=== PATIENT | male | born 1980 | race Two or more races ===

== ENCOUNTER 2021-03-09 18:46 | Inpatient (IN) | payer MEDICAID, SELFPAY ==
[2021-03-09] VITALS (8 sets, daily range): BP systolic 131–181; BP diastolic 111–124; PULSE 110–119; RESP 15–20; TEMP 36.5; O2SAT 97–99
--- NOTE | ~2021-03-09 | US_ITS ---
US renal BI 03/10/2021 13:15 Procedure: Realtime transabdominal ultrasound of the kidneys and bladder. Indication: Proteinuria Comparison: No prior studies for comparison. Findings: Renal echotexture is normal bilaterally without hydronephrosis, contour deforming mass or r enal calculus. The right kidney measures 10.8 cm and left kidney measures 10.1 cm. Bladder is not di stended for evaluation. Impression: 1: Unremarkable renal ultrasound. No stones, masses or hydronephrosis. Reviewed, dictated and finalized at location A. Impression: 1: Unremarkable renal ultrasound. No stones, masses or hydronephrosis.
--- NOTE | ~2021-03-09 | XR_ITS ---
EXAMINATION: XR chest 2V DATE: 03/09/2021 19:26 INDICATION: Cough. TECHNIQUE: Frontal and lateral views of the chest were obtained. COMPARISON: None. FINDINGS: There are airspace opacities in the mid and lower lung zones with a perihilar predominance. No pleural effusion or pneumothorax or cardiomegaly is noted. IMPRESSION: 1. Airspace opacities in the mid and lower lung zones, consistent with pneumonia versus mild pulmonar y edema. 2. Cardiomegaly. Reviewed, dictated and finalized at location A. IMPRESSION: 1. Airspace opacities in the mid and lower lung zones, consistent with pneumoni a versus mild pulmonary edema. 2. Cardiomegaly.
--- NOTE | 2021-03-09 18:55 | ECG_ITS ---
Measurements Intervals [place] Rate: 113 P: 53 NV: 163 QRS: 63 QRSD: 105 T: 145 QT: 326 QTc: 448 Interpretive Statements SINUS TACHYCARDIA POSSIBLE LEFT ATRIAL ENLARGEMENT INCOMPLETE RIGHT BUNDLE BRANCH BLOCK BORDERLINE T WAVE ABNORMALITY- DIFFUSE LEADS ABNORMAL ECG Electronically Signed On 03-09-2021 21:26:25 CDT by Antione Lucero D.O.
[2021-03-09 19:23] LABS: Basophils Percent Auto 0.4 % (0.2-1.2); Eosinophils Absolute Auto 0.1 K/mm3 (0-0.3); Eosinophils Percent Auto 0.7 % (0-4.4); Hematocrit 42.2 % (42.0-52.0); Hemoglobin 13.6 g/dL (14.0-18.0); Immature Granulocyte Absolute 0.03 K/mm3 (0.00-0.031); Immature Granulocyte Percent A 0.3 % (0-0.5); Lymphocytes Absolute Auto 2.21 K/mm3 (0.9-3.2); Lymphocytes Percent Auto 21.5 % (18.3-44.2); Mean Corpuscular HGB Conc 32.2 g/dl (32-36); Mean Corpuscular Hemoglobin 28.3 pg (26-34); Mean Corpuscular Volume 87.7 fl (80-100); Mean Platelet Volume 9.3 fl (7.4-10.4); Monocytes Absolute Auto 0.5 K/mm3 (0.1-0.6); Monocytes Percent Auto 4.9 % (2.6-8.5); Neutrophils Absolute Auto 7.4 K/mm3 (1.3-6.7); Neutrophils Percent Auto 72.2 % (45.5-73.1); Platelet Count Result 377 k/mm3 (150-375); Red Blood Count 4.81 M/mm3 (4.6-6.20); Red Cell Distribution Width 13.5 % (11.5-14.5); White Blood Count 10.3 K/mm3 (4.5-10.0)
[2021-03-09 19:25] LABS: Anion Gap 7 mmol/L (8-16); Blood Urea Nitrogen 13 mg/dL (9-20); Calcium 8.5 mg/dL (8.4-10.2); Carbon Dioxide 24 mmol/L (22-30); Chloride 104 mmol/L (98-107); Estimated CRCL calculation 100 ml/min; Estimated Glomerular Filt Rate > 60; Glucose 112 mg/dL (65-110); INR 1.1; Partial Thromboplastin Time 28.9 SECONDS (22.3-36.8); Potassium 3.8 mmol/L (3.4-5.0); Prothrombin Time 13.6 Seconds (11.1-14.7); Sodium 135 mmol/L (137-145)
[2021-03-09 19:37] LABS: NT Pro B Type Natriuretic Pept 2590 pg/mL (5-100); Troponin I 0.025 ng/mL (0.000-0.034)
[2021-03-09 20:38] LABS: Alanine Aminotransferase 37 U/L (4-50); Albumin Level 3.4 g/dL (3.5-5.1); Alkaline Phosphatase 87 U/L (38-126); Aspartate Amino Transferase 41 U/L (17-59); Bilirubin,Total 0.8 mg/dL (0.2-1.3)
[2021-03-09 21:04] LABS: Add Urine Microscopic? YES; Appearance Urine Clear (Clear); Bilirubin Urine Negative (Negative); Blood Urine Negative (Negative); Color Urine Amber (Yellow); Glucose Urine UA Negative (Negative); Ketones Urine Negative (Negative); Leukocyte Esterase Ur Negative LEU/UL (Negative); Mucus Urine Rare /lpf; Nitrate Urine Negative (Negative); Protein Urine 2+ mg/dL (Negative); RBC Urine 0-2 /hpf (0-2); Specific Grav Ur 1.027 (1.001-1.035); WBC Urine 0-3 /hpf
--- NOTE | 2021-03-09 21:20 | ED.GENADULT ---
HPI - General Adult General Chief complaint: Unspecified Stated complaint: BILATERAL SWELLING TO EXTREMITIES Time Seen by Provider: 03/09/21 20:12 Source: patient Mode of arrival: ambulatory Limitations: no limitations History of Present Illness HPI narrative: 40-year-old male Here because of generalized swelling and weight gain Patient says that he had a URI a couple weeks ago Now over the last few days he has noticed marked and increasing weight gain, swelling of both legs, swelling of his scrotum, and increased abdominal girth He has a little shortness of breath when ambulatory but generally speaking is tolerant of being supine He does not have chest pain Related Data Home Medications Medication Instructions Recorded Confirmed No Home Medications 03/09/21 03/09/21 Allergies Allergy/AdvReac Type Severity Reaction Status Date / Time amoxicillin Allergy Swelling Verified 03/09/21 20:14 Review of Systems Review of Systems: All systems reviewed & are unremarkable except as noted in HPI and below Constitutional: Constitutional: Reports no additional constitutional complaints, Denies chills, Denies fever(s) and Denies headache(s) Eyes: Eyes: Reports no additional eye complaints and Denies change in vision ENT: Denies headache(s) and Denies sore throat Cardiovascular: Cardiovascular: Denies chest pain, Reports edema and Denies dyspnea Respiratory: Respiratory: Denies cough, Reports dyspnea and Reports dyspnea on exertion Gastrointestinal: Gastrointestinal: Denies abdominal pain, Denies diarrhea and Denies vomiting Genitourinary: Genitourinary: Denies dysuria, Reports scrotal swelling and Denies urinary frequency Musculoskeletal: Musculoskeletal: Denies deformity, Denies arthralgias, Denies joint swelling and Denies numbness Integumentary/Breasts: Skin/Breast: Denies rash and Denies wounds Neurologic: Denies headache(s), Denies focal weakness and Denies numbness Psychiatric: Psychiatric: Reports no additional psychiatric complaints Endocrine: Endocrine: Reports no additional endocrine complaints Hematologic/Lymphatic: Hematologic/Lymphatic: Reports no additional hematologic/lymphatic complaints Allergic/Immunologic: Allergic/Immunologic: Reports no additional allergic/immunologic complaints [facility] Social History Social History Gender identity (if verbalized by the patient): Male Exam Const: General: cooperative, healthy appearing and no acute distress Orientation/consciousness: patient oriented x3 (alert) HENMT: Head: normal to inspection, normocephalic and atraumatic Eyes: Conjunctivae: conjunctivae normal EOM: EOMs intact bilaterally Neck: Neck: normal visual inspection, supple and no JVD Resp: Effort & Inspection: normal respiratory effort and not labored Auscultation: clear to auscultation bilaterally, no rales, no rhonchi, no wheezes and other (BS =) Cardio: Rate: regular rate Rhythm: regular rhythm Heart sounds: no murmurs GI: Inspection: distended GI Palp: Yes Soft to palpation and No Tenderness to palpation present (GI) Auscultation: normal bowel sounds : Scrotum: scrotal swelling Skin: General skin exam: normal color and no rashes or lesions noted Neuro: General: patient oriented x3 (alert) and moves all extremities Speech: normal speech Extrem: General: normal to inspection, edema and pedal edema Psych: Affect: normal affect Course Vital Signs Vital signs: Vital Signs Temperature 36.5 C 03/09/21 18:51 Pulse Rate 110 H 03/09/21 18:51 Respiratory Rate 20 03/09/21 18:51 Blood Pressure 158/123 H 03/09/21 18:51 Pulse Oximetry 98 03/09/21 18:51 Temperature 36.5 C 03/09/21 18:51 Pulse Rate 116 H 03/09/21 20:13 Respiratory Rate 20 03/09/21 20:13 Blood Pressure 131/115 H 03/09/21 20:13 Pulse Oximetry 97 03/09/21 20:13 Medical Decision Making Vital Signs Vital Signs: Vital Signs Temperature 36.5 C 03/09/21 18:51
[2021-03-09 22:02] LABS: Troponin I 0.026 ng/mL (0.000-0.034)
[2021-03-09] MEDS: BUMETANIDE INJ 1 MG/4 ML VIAL 2 MG IV PUSH (23:06)
[2021-03-09] MEDS: POTASSIUM CHLORIDE 20 MEQ PACKET (FOR LIQUID) 40 MEQ PO (23:06)
--- NOTE | 2021-03-09 23:15 | PC.NURSE ---
ERP notifed of patient's VS.
[2021-03-09] MEDS: ENALAPRILAT 1.25 MG/ML VIAL 2.5 MG IV PUSH (23:41)
[2021-03-10] VITALS (13 sets, daily range): BP systolic 139–177; BP diastolic 102–128; PULSE 100–117; RESP 15–22; TEMP 36.4–37; O2SAT 97–100; BMI 37.8
--- NOTE | 2021-03-10 00:01 | PM.IMHP ---
H&P: HPI History of Present Illness Date/Time: 03/10/21 00:01 Chief Complaint: Shortness of breath Narrative: This is a 40-year-old male who is a very poor historian was not cooperating with history taking as well stated that his had shortness of breath and swelling and thus why he came to the hospital. Girlfriend who is sitting at bedside has given most of the history there were constantly bickering and going back and forth while I was trying to examine the patient and do history taking. According to girlfriend his been having worsening shortness of breath daughter started roughly 3 months ago and now his has worsening swelling of bilateral lower extremity abdomen scrotum has witnessed PND and orthopnea states that he can do anything because gets very short of breath during this time patient has been smoking a pack a day of cigarettes which he stopped 2 weeks ago also during this interval of time patient has been to see the doctor at various facilities from what I gather from on what girlfriend said at some point he was on steroids p.o. and antibiotics but nothing really worked and he has gotten worse. He denied to have had any chest pain or fevers or rigors or chills. Preliminary workup was significant for elevated BNP, urinalysis significant with proteinuria, he had a systolic in the 180s with diastolic in the 110, ECG chest x-ray was significant for cardiomegaly and opacities and ECG with diffuse ST and T-wave changes. Review of Systems Review of Systems: Shortness of breath and swelling increased abdominal girth scrotal swelling ROS unobtainable: Yes other (Patient a very avoidant and poor historian) Cardiovascular: Cardiovascular: Denies chest pain PMFSH Social History Social History Gender identity (if verbalized by the patient): Male Meds Home Medications and Allergies Home Medications Medication Instructions Recorded Confirmed Type No Home Medications 03/09/21 03/09/21 History Allergies Allergy/AdvReac Type Severity Reaction Status Date / Time amoxicillin Allergy Swelling Verified 03/09/21 20:14 Vital Signs Vital Signs - 24 hr 03/09/21 18:51 03/09/21 20:13 03/09/21 20:17 Temperature 97.7 F Pulse Rate 110 H 116 H 119 H Respiratory Rate 20 20 Blood Pressure 158/123 H 131/115 H Pulse Oximetry 98 97 98 03/09/21 20:30 03/09/21 23:03 03/09/21 23:15 Temperature Pulse Rate 116 H Respiratory Rate Blood Pressure 181/124 H 180/117 H Pulse Oximetry 98 99 03/09/21 23:46 Temperature Pulse Rate 118 H Respiratory Rate 15 Blood Pressure 153/111 H Pulse Oximetry 98 Exam Narrative: Laying in audrey Const: General: comfortable, no acute distress, well developed, alert, awake, Physically active and other (Well-appearing) Nutritional Appearance: average body habitus Orientation/consciousness: patient oriented x3 HENMT: Head: normal to inspection, normocephalic and atraumatic Ears: hearing grossly normal bilaterally General nose exam: Normal external nose present Face and sinus: normal facial exam Mouth: Yes Normal oral and palatal mucosa present Eyes: General: appearance normal, both eyes and all related structures Alignment and Position: alignment normal Sclera: sclerae normal Pupils: Equal, round and reactive pupils present EOM: EOMs intact bilaterally Neck: Neck: full ROM, no lymphadenopathy, supple and no JVD Thyroid: thyroid normal Lymphatic: no lymphadenopathy noted Resp: Effort & Inspection: normal respiratory effort and able to speak in complete sentences Auscultation: clear to auscultation bilaterally Cardio: Jugular venous distension: no JVD Rate: tachycardic Rhythm: regular rhythm Heart sounds: S1 normal heart sound present and S2 normal heart sound present GI: Inspection: distended GI Palp: Yes Soft to palpation, Yes Firmness to palpation present (GI), No Tenderness to palpation present (GI) and Yes No hepatosplenomegaly present : General: Yes deferr
--- NOTE | 2021-03-10 00:24 | ADMGEN ---
This patient, Shahzad Danielle, was admitted to [facility] Surg Room 330-01. Patient/family oriented to hospital policies and general routines including ID bracelet, bed and alarms, visiting hours, pain management, procedures, bathroom and other care routines, personal items, smoking policy, room service/diet, and visiting hours. Information on how to activate the Rapid Response Team has been discussed. Patient/Family are encouraged to report perceived risks to care and to ask questions if they do not understand what they are told or what they should do.
[2021-03-10] MEDS: hydrALAZINE HCL 20 MG/ML VIAL 10 MG IV PUSH (01:15)
[2021-03-10 02:18] LABS: Troponin I 0.029 ng/mL (0.000-0.034)
[2021-03-10] MEDS: HEPARIN SODIUM 5,000 UNITS/ML VIAL 5000 UNITS SUB-Q ×3 (05:52→20:50)
[2021-03-10 09:02] LABS: Hematocrit 43.8 % (42.0-52.0); Mean Corpuscular Hemoglobin 28.4 pg (26-34); Mean Corpuscular Volume 88.8 fl (80-100); Mean Platelet Volume 9.1 fl (7.4-10.4); Platelet Count Result 356 k/mm3 (150-375); Red Blood Count 4.93 M/mm3 (4.6-6.20); Red Cell Distribution Width 13.5 % (11.5-14.5); White Blood Count 10.3 K/mm3 (4.5-10.0)
[2021-03-10 09:17] LABS: Alanine Aminotransferase 35 U/L (4-50); Albumin Level 3.6 g/dL (3.5-5.1); Alkaline Phosphatase 91 U/L (38-126); Anion Gap 8 mmol/L (8-16); Aspartate Amino Transferase 33 U/L (17-59); Bilirubin,Total 1.8 mg/dL (0.2-1.3); Blood Urea Nitrogen 12 mg/dL (9-20); Calcium 8.7 mg/dL (8.4-10.2); Carbon Dioxide 26 mmol/L (22-30); Chloride 101 mmol/L (98-107); Estimated CRCL calculation 107 ml/min; Estimated Glomerular Filt Rate > 60; Glucose 110 mg/dL (65-110); Potassium 3.8 mmol/L (3.4-5.0); Sodium 135 mmol/L (137-145)
[2021-03-10] MEDS: FUROSEMIDE INJ 40 MG/4 ML VIAL IV PUSH ×2 (09:31→20:50)
[2021-03-10] MEDS: POTASSIUM CHLORIDE 20 MEQ TABLET.ER PO ×2 (09:31→17:58)
[2021-03-10] MEDS: lisinopriL 10 MG TABLET PO (09:31)
--- NOTE | 2021-03-10 14:49 | PM.IMPN ---
Progress Note: A&P Assessment and Plan (1) CHF (congestive heart failure): Code(s): I50.9 - Heart failure, unspecified Status: Acute Assessment and Plan: Presented with increased edema of lower extremities and scrotum. BNP 2600 Echo has been ordered. Awaiting completion tomorrow Appreciate cardiology consultation Continue with Lasix 40 mg IV b.i.d. Monitor renal function with diuresis. Monitor intake and output. Weigh daily Heart healthy diet and 1500 cc fluid restriction. (2) Anasarca: Code(s): R60.1 - Generalized edema Status: Acute Assessment and Plan: Likely related to CHF. Of note, patient had 2+ proteinuria. Albumin level normalized. Renal ultrasound unremarkable. Discussed case with student finance specialist, Dr. Gordon. No need for nephrology consultation at this time and I will cancel. (3) Abnormal CXR: Code(s): R93.89 - Abnormal findings on diagnostic imaging of other specified body structures Status: Acute Assessment and Plan: CXR reviewed with airspace opacities in the mid and lower lung zones. Favor pulmonary edema over pneumonia given evidence of volume overload. No signs or symptoms to suggest infectious etiology Will discontinue doxycycline at this time. Continue with diuresis (4) Person under investigation for COVID-19: Code(s): Z20.822 - Contact with and (suspected) exposure to COVID-19 Status: Acute Assessment and Plan: Has been tested for COVID-19 in the ED. Has not been vaccinated. Denies contact with known COVID-19 positive individuals. Denies travel. COVID test is pending. Await results. Continue isolation precautions at this time. He is maintaining adequate oxygenation on room air. No need for COVID specific treatment at this time including antivirals or steroids. Supportive care (5) Hypertension: Code(s): I10 - Essential (primary) hypertension Status: Acute Assessment and Plan: Blood pressure reviewed and has been elevated above target. Likely related to volume overload. Last BP 151/102 Anticipate improvement with continued diuresis Not on antihypertensives at home P.r.n. hydralazine for SBP >180 (6) Tobacco dependence: Code(s): F17.200 - Nicotine dependence, unspecified, uncomplicated Status: Acute Assessment and Plan: Reports quit smoking 2 weeks ago. Previously smoking 1 pack per day. Continue to encourage smoking cessation Subjective Date/time seen: 03/10/21 14:49 Interval history: Date of service: 03/10/21 Shahzad Danielle is a 40-year-old male with history of tobacco abuse who is seen in follow-up for suspected CHF exacerbation. He is feeling significantly better today after being diuresed. He is able to take deep breaths and is no longer complaining of shortness of breath. No longer endorsing orthopnea or PND. States he was able to sleep better than he has in a long time and was able to lay flat. No cough or sputum production. He is urinating frequently with his Lasix. Scrotal edema has improved significantly and lower extremity edema is improving. No nausea, vomiting, fever, or chills. No anosmia or dysgeusia. Tolerating his diet. He is able to get up and ambulate independently. Denies dizziness or lightheadedness. No chest pain or palpitations. Last bowel movement was 1 day ago. No urinary symptoms. He would like to take a shower. Review of Systems Review of Systems: All systems reviewed & are unremarkable except as noted in HPI and below Exam Narrative: Mr. Danielle is a well-nourished, well-appearing 40-year-old male who is lying supine in bed. He appears comfortable and is in NARD. Neuro: awake, alert and oriented x4, speech clear, no focal neuro deficits noted HEENMT: normocephalic, atraumatic, EOMI, sclerae anicteric, moist oral mucosa Respiratory: Diminished breath sounds bilaterally with isolation stethoscop
[2021-03-11] VITALS: BP 163/105; PULSE 110; RESP 20; TEMP 36.8; O2SAT 98
[2021-03-11 04:00] VITALS: BP 157/102; PULSE 107; RESP 20; TEMP 36.3; O2SAT 100
[2021-03-11] MEDS: HEPARIN SODIUM 5,000 UNITS/ML VIAL 5000 UNITS SUB-Q ×3 (06:35→21:11)
[2021-03-11 08:00] VITALS: BP 159/112; PULSE 110; RESP 18; TEMP 36.7; O2SAT 98
[2021-03-11] MEDS: POTASSIUM CHLORIDE 20 MEQ TABLET.ER PO ×2 (08:03→16:05)
[2021-03-11] MEDS: FUROSEMIDE INJ 40 MG/4 ML VIAL IV PUSH ×2 (08:03→21:11)
[2021-03-11] MEDS: lisinopriL 10 MG TABLET PO (08:03)
[2021-03-11] MEDS: hydrALAZINE HCL 20 MG/ML VIAL 10 MG IV PUSH ×2 (09:12→17:19)
[2021-03-11 09:32] LABS: Hematocrit 42.9 % (42.0-52.0); Hemoglobin 13.6 g/dL (14.0-18.0); Mean Corpuscular HGB Conc 31.7 g/dl (32-36); Mean Corpuscular Hemoglobin 28.4 pg (26-34); Mean Corpuscular Volume 89.6 fl (80-100); Mean Platelet Volume 9.3 fl (7.4-10.4); Platelet Count Result 373 k/mm3 (150-375); Red Blood Count 4.79 M/mm3 (4.6-6.20); Red Cell Distribution Width 13.6 % (11.5-14.5); White Blood Count 10.1 K/mm3 (4.5-10.0)
[2021-03-11 10:45] LABS: Anion Gap 10 mmol/L (8-16); Blood Urea Nitrogen 12 mg/dL (9-20); Carbon Dioxide 25 mmol/L (22-30); Chloride 99 mmol/L (98-107); Estimated CRCL calculation 107 ml/min; Estimated Glomerular Filt Rate > 60; Glucose 124 mg/dL (65-110); Potassium 4.2 mmol/L (3.4-5.0); Sodium 134 mmol/L (137-145)
[2021-03-11 12:30] VITALS: BP 149/99; PULSE 109; RESP 18; TEMP 36.5; O2SAT 98
--- NOTE | 2021-03-11 13:24 | PM.CNCAR ---
Assessment and Plan Assessment and plan (1) CHF (congestive heart failure): Code(s): I50.9 - Heart failure, unspecified <LARA Ray - Last Filed: 03/11/21 14:25> Status: Acute <LARA Ray - Last Filed: 03/11/21 14:25> Assessment and Plan: This is a new diagnosis. He began experiencing symptoms of shortness of breath, orthopnea, lower extremity edema within the past several weeks. He denies any cardiac history. Chest x-ray showed cardiomegaly and mild pulmonary edema. 2D echocardiogram has been ordered to evaluate systolic function, wall motion abnormalities, chamber dimensions, valve pathology. If systolic function is reduced well discussed pursuing ischemic workup. -continue furosemide 40 mg IV 12 hours. May possibly shift to oral furosemide tomorrow -continue lisinopril 10 mg daily -start carvedilol 3.125 mg BID -daily BMP -fluid restriction 1500 cc's daily -daily weights -accurate intake and output -will order compression stockings -CHF counseling <LARA Ray - Last Filed: 03/11/21 14:25> (2) Hypertension: Code(s): I10 - Essential (primary) hypertension <LARA Ray - Last Filed: 03/11/21 14:25> Status: Acute <LARA Ray - Last Filed: 03/11/21 14:25> Assessment and Plan: Remains above goal. Continue lisinopril. Adding carvedilol 3.125 mg BID <LARA Ray - Last Filed: 03/11/21 14:25> (3) Tobacco dependence: Code(s): F17.200 - Nicotine dependence, unspecified, uncomplicated <LARA Ray - Last Filed: 03/11/21 14:25> Status: Acute <LARA Ray - Last Filed: 03/11/21 14:25> Assessment and Plan: He quit smoking 2 weeks ago. I congratulated him on this. Encouraged continued abstinence from tobacco products. <LARA Ray - Last Filed: 03/11/21 14:25> History of Present Illness History of Present Illness Consult date/time: 03/11/21 13:24 <LARA Ray - Last Filed: 03/11/21 14:25> Requesting physician: Wendy Bridges MD <LARA Ray - Last Filed: 03/11/21 14:25> Consult reason: congestive heart failure <LARA Ray - Last Filed: 03/11/21 14:25> Reason For Visit: Anasarca, CHF <LARA Ray - Last Filed: 03/11/21 14:25> Narrative: This is a 40-year-old male with a past medical history of hypertension who I am seeing at the request of Dr. Bridges for our opinion and advice for management of congestive heart failure. The patient states that he presented to the hospital for what he describes as massive swelling in his bilateral lower extremities. He states that this came on suddenly about 2 days prior to his presentation to the hospital. He also tells me that about 3 weeks ago he presented to Urgent Care with symptoms of upper respiratory infection including chest congestion, shortness of breath, productive cough. He says that he was given antibiotics and steroids which did provide some relief of his symptoms. However, he was still having some shortness of breath and orthopnea which he attributed to the fact that he recently quit smoking. He denies any chest pain, paroxysmal nocturnal dyspnea, palpitations. He denies any cardiac history but does say that he was diagnosed with hypertension by his primary care doctor and was given medication that he did not take. Currently, he reports feeling significantly better than when he 1st presented to the hospital. He is denying shortness of breath. <LARA Ray - Last Filed: 03/11/21 14:25> Review of Systems Review of Systems: All systems reviewed & are unremarkable except as noted in HPI and below <LARA Ray - Last Filed: 03/11/21 14:25> Constitutional: Constitutional: Reports difficulty sleeping, Reports fatigue and Reports lethargy <LARA Ray - Last Filed: 03/11/21 14:25> Eyes:
[2021-03-11 15:12] LABS: Anion Gap 7 mmol/L (8-16); Blood Urea Nitrogen 13 mg/dL (9-20); Calcium 9.6 mg/dL (8.4-10.2); Carbon Dioxide 28 mmol/L (22-30); Chloride 105 mmol/L (98-107); Estimated CRCL calculation 107 ml/min; Estimated Glomerular Filt Rate > 60; Glucose 93 mg/dL (65-110); Potassium 4.8 mmol/L (3.4-5.0); Sodium 140 mmol/L (137-145)
--- NOTE | 2021-03-11 15:26 | PM.IMPN ---
Progress Note: A&P Assessment and Plan (1) CHF (congestive heart failure): Code(s): I50.9 - Heart failure, unspecified Status: Acute Assessment and Plan: Presented with increased edema of lower extremities and scrotum. BNP 2600 Echo has been ordered and awaiting completion Appreciate cardiology consultation Continue with Lasix 40 mg IV b.i.d. Monitor renal function with diuresis. Continue lisinopril 10 mg daily and started on carvedilol 3.125 mg BID Monitor intake and output. Weigh daily Heart healthy diet and 1500 cc fluid restriction. (2) Anasarca: Code(s): R60.1 - Generalized edema Status: Acute Assessment and Plan: Likely related to CHF. Of note, patient had 2+ proteinuria. Albumin level normalized. Renal ultrasound unremarkable. Discussed case with budget record clerk, Dr. Gordon. No need for nephrology consultation at this time and has been cancelled Continue with diuresis as above. (3) Abnormal CXR: Code(s): R93.89 - Abnormal findings on diagnostic imaging of other specified body structures Status: Acute Assessment and Plan: CXR reviewed with airspace opacities in the mid and lower lung zones. Favor pulmonary edema over pneumonia given evidence of volume overload. No signs or symptoms to suggest infectious etiology Continue with diuresis Discontinued doxycycline on 03/10/21. (4) Person under investigation for COVID-19: Code(s): Z20.822 - Contact with and (suspected) exposure to COVID-19 Status: Acute Assessment and Plan: Has been tested for COVID-19 in the ED. Has not been vaccinated. Denies contact with known COVID-19 positive individuals. Denies travel. COVID test performed on 03/09/21 is still pending. Await results. Continue isolation precautions at this time. He is maintaining adequate oxygenation on room air. No need for COVID specific treatment at this time including antivirals or steroids. Supportive care (5) Hypertension: Code(s): I10 - Essential (primary) hypertension Status: Acute Assessment and Plan: Blood pressure reviewed and has been elevated above target. Likely related to volume overload. Last BP 144/99 Anticipate improvement with continued diuresis Continue lisinopril and carvedilol P.r.n. hydralazine for SBP >180 (6) Tobacco dependence: Code(s): F17.200 - Nicotine dependence, unspecified, uncomplicated Status: Acute Assessment and Plan: Reports quit smoking 2 weeks ago. Previously smoking 1 pack per day. Congratulated on this accomplishment and encouraged to continue with smoking cessation Subjective Date/time seen: 03/11/21 15:26 Interval history: Date of service: 03/10/21 Shahzad Danielle is a 40-year-old male with history of tobacco abuse who is seen in follow-up for suspected CHF exacerbation. He is feeling much better today. His shortness of breath has improved significantly. He is able to lay flat and take deep breaths. He is tolerating activity and denies ARREOLA. Lower extremity edema has improved significantly and scrotal swelling has resolved. He is eating and drinking well. Urinating frequently with Lasix. Having regular bowel movements. No chest pain or palpitations. No dizziness or lightheadedness. He is hopeful for discharge soon. Review of Systems Review of Systems: All systems reviewed & are unremarkable except as noted in HPI and below Exam Narrative: Mr. Danielle is a well-nourished, well-appearing 40-year-old male who is lying supine in bed. He appears comfortable and is in NARD. Neuro: awake, alert and oriented x4, speech clear, no focal neuro deficits noted HEENMT: normocephalic, atraumatic, EOMI, sclerae anicteric, moist oral mucosa Respiratory: Diminished breath sounds bilaterally with isolation stethoscope. No crackles, rhonchi, or wheezes., Nonlabored breathing, able to speak in complete sentences C
--- NOTE | 2021-03-11 16:32 | PM.PNCARD ---
Progress Note: A&P Additional Plan 40-year-old black male with decompensated congestive heart failure almost certainly because of hypertensive heart disease and untreated hypertension. . Patient is doing much better with initiation of medical therapy. Echocardiogram is pending. The patient by physical exam appears to have evidence of left ventricular systolic dysfunction. The extent of this be reviewed on the echocardiogram. Hopefully he can be discharged tomorrow for further titration of his medications as an outpatient. Balaji Darnell MD [facility] Subjective Date/time seen: Date of service: 03/11/21 16:32 Interval history: 40-year-old gentleman with: Longstanding hypertension which has been untreated as he has been noncompliant with medication. He now presents with decompensated congestive heart failure which has responded well to diuresis and initiation of an AICHA-inhibitor. Low-dose carvedilol was started as well earlier today after being seen by the nurse practitioner. Patient has no symptoms or complaints to suggest ischemic heart disease. He is hopeful of being discharge soon so that he can return to work. Exam Const: General: comfortable and no acute distress Other: Pleasant overweight black male no apparent distress HENMT: Mouth: Yes dry mucous membranes Eyes: Sclera: sclerae normal Pupils: Equal, round and reactive pupils present Neck: Neck: supple Thyroid: thyroid normal Other: Carotid pulses are normal without bruits Resp: Other: Breath sounds are clear at this time no rales no rhonchi no wheezing Cardio: Rate: tachycardic Rhythm: regular rhythm Other: PMI is difficult to palpate patient has no murmur a summation gallop is audible GI: GI Palp: Yes Soft to palpation Auscultation: normal bowel sounds Skin: General skin exam: normal color Neuro: Cognition (Neuro): normal cognition Extrem: Other: Minimal residual edema Objective Data Vital Signs Vital Signs: Vital Signs - 24 hr 03/10/21 20:00 03/11/21 00:00 03/11/21 04:00 Temperature 36.9 C 36.8 C 36.3 C L Pulse Rate 102 H 110 H 107 H Respiratory Rate 20 20 20 Blood Pressure 139/102 H 163/105 H 157/102 H Pulse Oximetry 100 98 100 03/11/21 08:00 03/11/21 12:30 Temperature 36.7 C 36.5 C Pulse Rate 110 H 109 H Respiratory Rate 18 18 Blood Pressure 159/112 H 149/99 H Pulse Oximetry 98 98 Intake/Output Intake/Output: Intake & Output 03/08/21 03/09/21 03/10/21 03/11/21 23:59 23:59 23:59 23:59 Intake Total 5660 1820 Output Total 600 5090 2550 Balance -600 677 -480 Meds/Results Medications: Active Medications Generic Name Dose Route Start Last Admin Trade Name Freq PRN Reason Stop Dose Admin Carvedilol 3.125 mg 03/11/21 21:00 Carvedilol 3.125 Mg Tablet PO Q12HR MAEGAN Furosemide 40 mg 03/10/21 09:00 03/11/21 08:03 Furosemide Inj 40 Mg/4 Ml Vial IV PUSH 40 mg Q12HR MAEGAN Administration Heparin Sodium (Porcine) 5,000 units 03/10/21 06:00 03/11/21 13:21 Heparin Sodium 5,000 Units/Ml Vial SUB-Q 5,000 units Q8HR MAEGAN Administration Hydralazine HCl 10 mg 03/10/21 15:03 03/11/21 09:12 Hydralazine Hcl 20 Mg/Ml Vial IV PUSH 10 mg Q8H PRN Administration SBP >170 or DBP >100 Lisinopril 10 mg 03/10/21 09:00 03/11/21 08:03 Lisinopril 10 Mg Tablet PO 10 mg DAILY MAEGAN Administration Ondansetron HCl 4 mg 03/09/21 22:53 Ondansetron Inj 4 Mg/2 Ml Vial IV PUSH Q4H PRN Nausea Potassium Chloride 20 meq 03/10/21 08:00 03/11/21 16:05 Potassium Chloride 20 Meq Tablet.Er PO 20 meq BIDWM MAEGAN Administration Radiology Results: ITS Impressions Chest X-Ray 03/09/21 19:30 IMPRESSION: 1. Airspace opacities in the mid and lower lung zones, consistent with pneumonia versus mild pulmonary edema. 2. Cardiomegaly. Renal Ultrasound 03/10/21 13:19 Impression: 1: Unremarkable renal ultrasound. No stones, masses or hydronephrosis. Labs Labs:
[2021-03-11 17:00] VITALS: BP 154/111; PULSE 116; RESP 20; TEMP 36.9; O2SAT 100
[2021-03-11 17:31] LABS: SARS-CoV-2 RNA PCR Negative
[2021-03-11] MEDS: carvediloL 3.125 MG TABLET PO (21:11)
[2021-03-11 22:00] VITALS: BP 120/89; PULSE 112; RESP 18; TEMP 36.5; O2SAT 98
[2021-03-12] MEDS: HEPARIN SODIUM 5,000 UNITS/ML VIAL 5000 UNITS SUB-Q ×2 (05:06→15:26)
[2021-03-12 06:00] VITALS: BP 149/81; PULSE 99; RESP 18; TEMP 37.2; O2SAT 98
--- NOTE | 2021-03-12 06:00 | ECHO_ITS ---
Patient Info Name: Shahzad Danielle Age: 40 years : 1980 Gender: Male Ht: 75 in Wt: 264 lbs BSA: 2.55 m2 HR: 103 bpm BP: 149 / 81 mmHg Heart Rhythm: Tachycardia, Sinus Rhythm Technical Quality: Good Exam Date: 03/12/2021 10:56 AM Exam Location: [facility] Patient Status: Inpatient Admit Date: 03/11/2021 Staff Ordering Physician: Que Storm MD Hazardous Materials Handler: Christina Almendarez RDCS Attending Provider: Wendy Bridges MD Referring Physician: Emeterio CARTER; Exam Type: CA echo dop color flow w con Study Info Indications I50.9 - Heart failure, unspecified Complete two-dimensional, color flow and Doppler transthoracic echocardiogram is performed with contrast to opacify the left ventricle and to improve the deliniation of the left ventricle endocardial borders. Contrast/Agitated Saline Contrast/Ag. Saline: Definity Amount: 1.00 ml Administered By: Nanci Esteves RN Existing IV Access: Yes Summary 1. Left ventricular chamber dimension is moderate to severely enlarged. 2. Left ventricular systolic function is severely reduced, estimated at 25-30%. 3. There is mild to moderately increased left ventricular wall thickness. 4. The left ventricular diastolic function is abnormal. 5. Although filling defect noted at the LV apex with Definity contrast more likely heavy trabeculation, LV apical thrombus cannot be excluded. 6. Right ventricular chamber dimension is mildly enlarged. 7. Left atrial chamber dimension is moderately enlarged. 8. Right atrial chamber dimension is severely enlarged. 9. There is mild tricuspid valve regurgitation. 10. Mild pulmonary hypertension, estimated pulmonary arterial systolic pressure is 38 mmHg. Left Ventricle Left ventricular chamber dimension is moderate to severely enlarged. Left ventricular systolic function is severely reduced, estimated at 25-30%. There is mild to moderately increased left ventricular wall thickness. The left ventricular diastolic function is abnormal. Global longitudinal strain is severely elevated at -5 %. Although filling defect noted at the LV apex with Definity contrast more likely heavy trabeculation, LV apical thrombus cannot be excluded. Right Ventricle Right ventricular chamber dimension is mildly enlarged. Right ventricular systolic function is normal. Left Atria Left atrial chamber dimension is moderately enlarged. Right Atria Right atrial chamber dimension is severely enlarged. Aortic Valve The aortic valve is trileaflet. There is no aortic valve stenosis. There is no aortic valve regurgitation. Pulmonic Valve The pulmonic valve is normal. There is trace pulmonic regurgitation. Mitral Valve The mitral valve has normal leaflets. There is mild mitral valve regurgitation. Tricuspid Valve The tricuspid valve leaflets are normal. There is mild tricuspid valve regurgitation. Mild pulmonary hypertension, estimated pulmonary arterial systolic pressure is 38 mmHg. Pericardium/Pleural The pericardium appears normal. There is no pericardial effusion. Inferior Vena Cava Normal inferior vena cava with <50% collapse upon inspiration consistent with elevated right atrial pressure, 10 mmHg. Aorta The aortic root size at the sinus of Valsalva is normal. Left Ventricular Outflow Tract Name Value Normal
[2021-03-12 06:16] LABS: Hematocrit 46.4 % (42.0-52.0); Hemoglobin 14.4 g/dL (14.0-18.0); Mean Corpuscular Volume 90.3 fl (80-100); Mean Platelet Volume 8.9 fl (7.4-10.4); Platelet Count Result 397 k/mm3 (150-375); Red Blood Count 5.14 M/mm3 (4.6-6.20); Red Cell Distribution Width 13.5 % (11.5-14.5); White Blood Count 8.7 K/mm3 (4.5-10.0)
[2021-03-12 06:25] LABS: Anion Gap 6 mmol/L (8-16); Blood Urea Nitrogen 13 mg/dL (9-20); Calcium 9.6 mg/dL (8.4-10.2); Carbon Dioxide 30 mmol/L (22-30); Chloride 103 mmol/L (98-107); Estimated CRCL calculation 107 ml/min; Estimated Glomerular Filt Rate > 60; Glucose 93 mg/dL (65-110); Potassium 4.5 mmol/L (3.4-5.0); Sodium 139 mmol/L (137-145)
[2021-03-12 08:15] VITALS: PULSE 99
[2021-03-12] MEDS: lisinopriL 10 MG TABLET PO (08:15)
[2021-03-12] MEDS: FUROSEMIDE INJ 40 MG/4 ML VIAL IV PUSH (08:15)
[2021-03-12] MEDS: POTASSIUM CHLORIDE 20 MEQ TABLET.ER PO (08:15)
[2021-03-12] MEDS: carvediloL 3.125 MG TABLET PO (08:15)
[2021-03-12] MEDS: PERFLUTREN LIPID MICROSPHERES 1.5 ML VIAL DILUTED TO 10 ML TOTAL VOLUME IV PUSH (11:15)
--- NOTE | 2021-03-12 12:09 | PCCARD ---
12:00 NOTIFIED THE HEART CARE GROUP TO READ ECHOCARDIOGRAM BEFORE DISCHARGING PATIENT
[2021-03-12 14:00] VITALS: BP 150/111; PULSE 108; RESP 18; TEMP 36.4; O2SAT 99
--- NOTE | 2021-03-12 14:14 | PM.PNCARD ---
Progress Note: A&P Assessment and Plan (1) CHF (congestive heart failure): Code(s): I50.9 - Heart failure, unspecified <Teresa MilianLARA - Last Filed: 03/12/21 18:30> Status: Acute <Teresa MilianLARA - Last Filed: 03/12/21 18:30> Assessment and Plan: This is a new diagnosis. He began experiencing symptoms of shortness of breath, orthopnea, lower extremity edema within the past several weeks. He denies any cardiac history. Chest x-ray showed cardiomegaly and mild pulmonary edema. Probably nonischemic in etiology. He does have a history of hypertension. Echocardiogram from today shows severe LV systolic dysfunction with an ejection fraction of 25-30%., LV diastolic dysfunction, biatrial enlargement, cannot exclude LV thrombus. I talked to the patient extensively regarding this new diagnosis of heart failure. I talked to him about the findings of his echocardiogram that was performed this morning. I discussed the etiology of his heart failure is probably due to longstanding hypertension a possibly from former illicit drug use. We talked about pursuing an ischemic evaluation at some point in time although he does not report any signs or symptoms suggestive of ischemic disease which makes this etiology less likely. I discussed at great length heart failure management including medications that he is already been initiated on ( lisinopril, carvedilol, furosemide), as well as self management strategies for management of his heart failure. He understands his dietary restrictions, fluid restriction, and the importance of him adhering to his medical regimen. he is aware that he is to monitor for lower extremity edema, shortness of breath, orthopnea, paroxysmal nocturnal dyspnea, rapid weight gain, abdominal distention. He is aware that he is to call our office with any of these symptoms. I also talked with him in detail about his high risk of sudden cardiac given his reduced systolic function. I presented him with the option of a life vest to mitigate and such lethal arrhythmias. He is amenable to wearing a life vest, but he would like to check cost before he fully commits. I told him that although clinically his symptoms have improved that I would like for him to remain in hospital for 1 more night in order for him to be fitted for his LifeVest in to monitor blood pressure tolerance when up titrating his medicines. I also explained to him that he is on a moderate dose of IV furosemide which I would prefer to switch to oral and monitor his response to that while in hospital. At this point time he is refusing to remain in the hospital stating that he must be out by 5:00 p.m. today to meet with a civil preparedness training officer otherwise he will go back to long-term. I explained to him that I did not believe that being hospitalized with a legitimate medical condition could interfere with parole requirements. Nevertheless, he states that he under no circumstances can remain in the hospital overnight. - Shift to furosemide 40 mg p.o. b.i.d. - increase lisinopril to 20 mg daily - increase carvedilol to 6.25 mg b.i.d. - provided the patient with 1 month supply of Eliquis samples. (possible LV thrombus) - One month as an outpatient - follow-up with me in 2 weeks - BMP in 1 week as an outpatient - fluid restriction 2000 cc daily - daily weights - Daily BP <LARA Ray - Last Filed: 03/12/21 18:30> (2) Hypertension: Code(s): I10 - Essential (primary) hypertension <LARA Ray - Last Filed: 03/12/21 18:30> Status: Acute <LARA Ray - Last Filed: 03/12/21 18:30> Assessment and Plan: remains above goal. as above <LARA Ray - Last Filed: 03/12/21 18:30> (3) Tobacco dependence: Code(s): F17.200 - Nicotine dependence, unspecified, uncomplicated <LARA Ray - Last Filed: 03/12/21 18:30> Status:
[2021-03-12] MEDS: hydrALAZINE HCL 20 MG/ML VIAL 10 MG IV PUSH (15:26)
--- NOTE | 2021-03-12 16:14 | PM.IMPN ---
Subjective Date/time seen: 03/12/21 1415 Objective Data Vital Signs Vital Signs: Vital Signs - 24 hr 03/11/21 17:00 03/11/21 22:00 03/12/21 06:00 Temperature 98.4 F 97.7 F 98.9 F Pulse Rate 116 H 112 H 99 Respiratory Rate 20 18 18 Blood Pressure 154/111 H 120/89 149/81 H Pulse Oximetry 100 98 98 03/12/21 08:15 03/12/21 14:00 Temperature 97.5 F L Pulse Rate 99 108 H Respiratory Rate 18 Blood Pressure 150/111 H Pulse Oximetry 99 Intake/Output Intake/Output: Intake & Output 03/09/21 03/10/21 03/11/21 03/12/21 23:59 23:59 23:59 23:59 Intake Total 5660 3560 1030 Output Total 600 5090 6425 4150 Balance -600 570 -2865 -3120 Meds/Results Medications: Active Medications Generic Name Dose Route Start Last Admin Trade Name Freq PRN Reason Stop Dose Admin Carvedilol 3.125 mg 03/11/21 21:00 03/12/21 08:15 Carvedilol 3.125 Mg Tablet PO 3.125 mg Q12HR MAEGAN Administration Furosemide 40 mg 03/10/21 09:00 03/12/21 08:15 Furosemide Inj 40 Mg/4 Ml Vial IV PUSH 40 mg Q12HR MAEGAN Administration Heparin Sodium (Porcine) 5,000 units 03/10/21 06:00 03/12/21 15:26 Heparin Sodium 5,000 Units/Ml Vial SUB-Q 5,000 units Q8HR MAEGAN Administration Hydralazine HCl 10 mg 03/10/21 15:03 03/12/21 15:26 Hydralazine Hcl 20 Mg/Ml Vial IV PUSH 10 mg Q8H PRN Administration SBP >170 or DBP >100 Lisinopril 10 mg 03/10/21 09:00 03/12/21 08:15 Lisinopril 10 Mg Tablet PO 10 mg DAILY MAEGAN Administration Ondansetron HCl 4 mg 03/09/21 22:53 Ondansetron Inj 4 Mg/2 Ml Vial IV PUSH Q4H PRN Nausea Potassium Chloride 20 meq 03/10/21 08:00 03/12/21 08:15 Potassium Chloride 20 Meq Tablet.Er PO 20 meq BIDWM MEAGAN Administration Radiology Results: ITS Impressions Chest X-Ray 03/09/21 19:30 IMPRESSION: 1. Airspace opacities in the mid and lower lung zones, consistent with pneumonia versus mild pulmonary edema. 2. Cardiomegaly. Renal Ultrasound 03/10/21 13:19 Impression: 1: Unremarkable renal ultrasound. No stones, masses or hydronephrosis. Labs Labs: Laboratory Results - last 24 hr 03/09/21 03/12/21 03/12/21 22:00 06:00 06:00 WBC 8.7 RBC 5.14 Hgb 14.4 Hct 46.4 MCV 90.3 MCH 28.0 MCHC 31.0 L RDW 13.5 Plt Count 397 H MPV 8.9 Sodium 139 Potassium 4.5 Chloride 103 Carbon Dioxide 30 Anion Gap 6 L BUN 13 Creatinine 1.20 Estim Creat Clear Calc 107 Estimated GFR > 60 Glucose 93 Calcium 9.6 SARS-CoV-2 RNA (RT-PCR) Negative Quality VTE Prophylaxis VTE prophylaxis: pharmacologic ordered
--- NOTE | 2021-03-12 17:25 | PM.DS ---
DS: Admitting Diagnosis Admitting Diagnosis Anasarca, CHF DS: Discharge Diagnosis Discharge Diagnosis (1) CHF (congestive heart failure): Code(s): I50.9 - Heart failure, unspecified Status: Acute Assessment and Plan: Date of Admission 03/09/21 Date of Discharge 03/12/21 Mr. Danielle is a 40yo M with untreated hypertension who presented to the ED for evaluation of bilateral lower extremity and scrotal swelling. BNP was elevated at 2600. He was admitted to the hospitalist service for further evaluation of possible heart failure. He was evaluated by cardiology. Echocardiogram demonstrated EF 25-30%, detailed below. He was diuresed with IV lasix and his swelling improved. He was started on medical management with coreg and lisinopril. Filling defect noted on echocardiogram and thrombus cannot be ruled out, thus he is started on Eliquis by the cardiology service. Patient is educated at length regarding his new diagnosis and his risk for arrhythmia and sudden cardiac . Patient verbalizes understanding. Patient is adamant to be discharged today, as he needs to go see his certified juvenile probation officer he says. He is educated on the risks. He is hemodynamically stable to discharge 03/12/21 with plans to follow up with cardiology. He is educated on the importance of taking his medications as prescribed. (2) Anasarca: Code(s): R60.1 - Generalized edema Status: Acute Assessment and Plan: Likely related to CHF. Of note, patient had 2+ proteinuria. Albumin level normalized. Renal ultrasound unremarkable. Improved with diuresis. (3) Abnormal CXR: Code(s): R93.89 - Abnormal findings on diagnostic imaging of other specified body structures Status: Acute Assessment and Plan: CXR reviewed with airspace opacities in the mid and lower lung zones. Favor pulmonary edema over pneumonia given evidence of volume overload. No signs or symptoms to suggest infectious etiology Treated with IV lasix. Transitioned to oral lasix for discharge. Discontinued doxycycline on 03/10/21. (4) Person under investigation for COVID-19: Code(s): Z20.822 - Contact with and (suspected) exposure to COVID-19 Status: Ruled-out Assessment and Plan: COVID-19 by PCR is negative. Ruled out. (5) Hypertension: Code(s): I10 - Essential (primary) hypertension Status: Acute Assessment and Plan: Blood pressure reviewed and has been elevated above target. Likely related to volume overload. Anticipate improvement with continued diuresis Continue lisinopril and carvedilol, increased at discharge. (6) Tobacco dependence: Code(s): F17.200 - Nicotine dependence, unspecified, uncomplicated Status: Acute Assessment and Plan: Reports quit smoking 2 weeks ago. Previously smoking 1 pack per day. Congratulated on this accomplishment and encouraged to continue with smoking cessation DS: Summary Hospital Course Hospital Course: See above Time Spent with Patient Time attestation: Total time spent providing and/or coordinating discharge services: 45 minutes Exam Narrative: General: Male resting comfortably sitting up on edge of bed in no acute distress. HEENT: Normocephalic, EOMI, oral mucosa moist. Cardiovascular: Rate and rhythm are regular. Respiratory: Lungs clear to auscultation bilaterally. Respirations even and non-labored. Tolerating room air. Abdomen: Soft, non-tender, non-distended, bowel sounds present. Extremities: Peripheral pulses intact. Mild pretibial edema ANGELES. Neuro: Awake and alert; answering questions appropriately. No focal neurological deficits. Speech is clear. DS: Data Data Completed and Pending Labs on day of discharge: Last Vital Signs
--- NOTE | 2021-03-19 12:09 | PC.NURSE ---
Blood cx is are negative.
== END 2021-03-12 18:21 | disposition home or self-care (01) | DRG 194 ==
LOC: ANHED 20:46 → ANH3MEDSUR 03-10 00:04
PROVIDERS: Nurse Practitioner; Physician Assistant; Admitting Provider Internal Medicine; Emergency Provider Emergency Medicine; Visit Provider Internal Medicine
DX: I11.0 Hypertensive heart disease with heart failure (principal); I50.9 Heart failure, unspecified; Z20.822 Contact with and (suspected) exposure to COVID-19; R93.89 Abnormal findings on diagnostic imaging of other specified body structures; Z87.891 Personal history of nicotine dependence; Z91.14 Patient's other noncompliance with medication regimen
CPT/HCPCS: 36415; 71046; 76775; 80048; 80053; 80076; 81001; 83880; 84484; 85025; 85027; 85610; 85730; 87040; 93005; 96365; 96366; 96372; 96374; 96375; 96376; 99285; A9270; C8929; C9803; G0378; G0379; J0360; J1644; J1940; Q9957; U0003; U0005